=== PATIENT | male | born 1990 | race Caucasian/White ===

== ENCOUNTER 2018-12-18 12:54 | Emergency (ER) | payer SELFPAY ==
[~2018-12-18] VITALS: Ht 182.9 cm; Wt 77.3 kg
[2018-12-18 13:27] VITALS: BP 102/53; Ht 182.9 cm; Wt 77.3 kg
== END 2018-12-18 15:32 | disposition home or self-care (01) ==
LOC: D.ER 12:54
DX: R52 Pain, unspecified (principal); W19.XXXA Unspecified fall, initial encounter; R51 Headache; M25.512 Pain in left shoulder; M25.562 Pain in left knee